=== PATIENT | female | born 1990 | race Caucasian/White ===

== ENCOUNTER 2018-09-08 14:03 | Emergency (ER) | payer MEDICAID ==
[~2018-09-08] VITALS: Ht 160 cm; Wt 50.0 kg
[~2018-09-08 14:03] MED LIST: NO HOME MEDS
[2018-09-08 14:06] VITALS: BP 126/70
[2018-09-08] MEDS ORDERED: CEPH500C5 PO (14:21)
[2018-09-08] MEDS ORDERED: SULF1TAB49 PO (14:21)
== END 2018-09-08 14:51 ==
LOC: ER 14:03
DX: T81.49XA Infection following a procedure, other surgical site, initial encounter (principal); L08.89 Other specified local infections of the skin and subcutaneous tissue; F12.90 Cannabis use, unspecified, uncomplicated; F15.90 Other stimulant use, unspecified, uncomplicated; Z88.0 Allergy status to penicillin; Z91.013 Allergy to seafood; Z56.0 Unemployment, unspecified; Z59.0 Homelessness; Z60.2 Problems related to living alone; Y83.8 Other surgical procedures as the cause of abnormal reaction of the patient, or of later complication, without mention of misadventure at the time of the procedure; Y92.89 Other specified places as the place of occurrence of the external cause
CPT/HCPCS: 99284

== ENCOUNTER 2018-12-01 15:05 | Emergency (ER) | payer MEDICAID ==
[~2018-12-01] VITALS: Ht 160 cm; Wt 56.7 kg
[~2018-12-01 15:05] MED LIST changes: +CEPH500C5 PO
[2018-12-01 15:25] VITALS: BP 124/84
--- NOTE | 2018-12-01 17:44 | NUR ---
BRACE APPLIED TO RIGHT WRIST.
== END 2018-12-01 17:44 | disposition home or self-care (01) ==
LOC: ER 15:06
DX: S63.91XA Sprain of unspecified part of right wrist and hand, initial encounter (principal); F12.90 Cannabis use, unspecified, uncomplicated; F15.90 Other stimulant use, unspecified, uncomplicated; Z88.0 Allergy status to penicillin; Z91.013 Allergy to seafood; Z79.899 Other long term (current) drug therapy; Z98.890 Other specified postprocedural states; Z60.2 Problems related to living alone; Z56.0 Unemployment, unspecified; Z59.0 Homelessness; W18.39XA Other fall on same level, initial encounter; Y93.89 Activity, other specified; Y92.89 Other specified places as the place of occurrence of the external cause; Y99.8 Other external cause status
CPT/HCPCS: 29125; 73130; 99283

== ENCOUNTER 2022-09-16 15:33 | Inpatient (IN) | payer MEDICAID ==
[~2022-09-16] VITALS: Ht 160 cm; Wt 59.1 kg
[~2022-09-16 15:33] MED LIST changes: -CEPH500C5 PO
[2022-09-16] MEDS ORDERED: normal saline 1000ML IV soln IV ONE (15:45)
[2022-09-16 16:17] LABS: BASOPHILS # (AUTO) 0.1 X10'3 (0-0.2); BASOPHILS % (AUTO) 0.7 % (0-1); EOSINOPHILS # (AUTO) 0.1 X10'3 (0-0.9); EOSINOPHILS % (AUTO) 1.4 % (0-6); HEMATOCRIT 41.6 % (35.0-45.0); HEMOGLOBIN 13.7 g/dl (12.0-16.0); LYMPHOCYTES # (AUTO) 2.2 X10'3 (1.1-4.8); LYMPHOCYTES % (AUTO) 21.5 % (21-51); MEAN CORPUSCULAR HEMOGLOBIN 25.7 PG (27.0-31.0); MEAN CORPUSCULAR HGB CONC 32.9 g/dL (33.0-36.5); MEAN CORPUSCULAR VOLUME 78.1 FL (78-98); MEAN PLATELET VOLUME 7.4 FL (7.4-10.4); MONOCYTES # (AUTO) 0.7 X10'3 (0-0.9); MONOCYTES % (AUTO) 6.7 % (2-12); NEUTROPHILS % (AUTO) 69.7 % (42-75); PLATELET COUNT 548 X10'3 (140-440); RED BLOOD COUNT 5.32 X10'6 (4.20-5.60); RED CELL DISTRIBUTION WIDTH 13.6 % (11.5-14.5); WHITE BLOOD COUNT 10.1 X10'3 (4.5-11.0)
[2022-09-16 16:32] LABS: ALANINE AMINOTRANSFERASE 14 U/L (12-78); ALBUMIN 3.4 G/DL (3.4-5.0); ALBUMIN/GLOBULIN RATIO 0.6 (1.1-1.5); ALKALINE PHOSPHATASE 132 IU/L (46-116); ANION GAP 10 (8-16); ASPARTATE AMINO TRANSFERASE 16 U/L (10-37); BILIRUBIN,TOTAL 0.3 MG/DL (0.1-1.0); BLOOD UREA NITROGEN 6 MG/DL (7-18); BUN/CREATININE RATIO 9.4 (6.6-38.0); CALCIUM 9.7 MG/DL (8.5-10.1); CHLORIDE 99 MMOL/L (99-107); CREATININE 0.64 MG/DL (0.40-0.90); GLUCOSE 97 MG/DL (70-104); POTASSIUM 3.4 MMOL/L (3.5-5.1); SODIUM 135 MMOL/L (135-145); TOTAL CARBON DIOXIDE 26.1 MMOL/L (24-32); TOTAL PROTEIN 9.1 G/DL (6.4-8.2); eGFR > 90 ML/MIN
[2022-09-16] MEDS ORDERED: vancomycin/NS 1 GM ADD-VANTAGE 250 ML IV ONE (20:20)
[2022-09-16] MEDS ORDERED: morphine 4 MG/ML inj SYRINge IV ONE (20:20)
[2022-09-16] MEDS ORDERED: metroNIDAZOLE-Flagyl 500mg/NS 100 ML IV ONE (20:25)
[2022-09-16] MEDS ORDERED: CefTRIAXone/D5W-Rocephin 1gm 50 ML IV ONE (20:25)
[2022-09-16] MEDS ORDERED: ondansetron/PF 4mg/2ml inj IV PRN (21:00)
[2022-09-16] MEDS ORDERED: temazepam 15mg capsule PO PRN (21:00)
[2022-09-16] MEDS ORDERED: bisacodyl 10mg suppository rectal RC PRN (21:00)
[2022-09-16] MEDS ORDERED: HYDROmorphone/PF 0.2 MG/ML SYRINGE IV PRN (21:00)
[2022-09-16] MEDS ORDERED: magnesium hydroxide 30ml (MOM) UD suspension PO PRN (21:00)
[2022-09-16] MEDS ORDERED: mag hydrox/Alum hydrox/simeth 30ml oral suspension PO PRN (21:00)
[2022-09-16] MEDS ORDERED: normal saline 1000ml 1,000 ML IV SCH (21:00)
[2022-09-16] MEDS ORDERED: ondansetron 4mg rapidly disintigrating tab PO PRN (21:00)
[2022-09-16] MEDS ORDERED: potassium Cl 40MEQ/1/2NS 520ml 520 ML IV PRN (21:00)
[2022-09-16] MEDS ORDERED: HYDROcodone/acetaminophen 10/325mg tab PO PRN (21:00)
[2022-09-16] MEDS ORDERED: HYDROmorphone inj. 0.5 MG/0.5 ML DISP.SYRIN IV PRN (21:00)
[2022-09-16] MEDS ORDERED: magnesium 4gm in 100ml NS 100 ML IV PRN (21:00)
[2022-09-16] MEDS ORDERED: magnesium Cl slow-release 64mg tablet PO PRN (21:00)
[2022-09-16] MEDS ORDERED: HYDROcodone/acetaminophen 5mg/325mg tablet PO PRN (21:00)
[2022-09-16] MEDS ORDERED: acetaminophen 650mg rectal suppository RC PRN (21:00)
[2022-09-16] MEDS ORDERED: TETanus/Pertussis (Acell)/Diphther VAC/PF (Tdap-Adult) 0.5ml syringe IMVAC ONE (21:00)
[2022-09-16] MEDS ORDERED: potassium Cl 20 mEq SR tablet PO PRN ×2 (21:00)
[2022-09-16] MEDS ORDERED: acetaminophen 325mg tablet PO PRN ×2 (21:00)
[2022-09-16 22:45] LABS: APTT 29 SECONDS (22-32)
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
--- NOTE | 2022-09-16 23:53 | NUR ---
IV DISCONTINUED PRIOR TO DC AND WOUND WRAPPED
[2022-09-17] VITALS: BP 138/79
[2022-09-17] MEDS ORDERED: VANCOmycin 1250MG/NS 250ml Bag 250 ML IV SCH (08:00)
[2022-09-17] MEDS ORDERED: docusate sod 100mg capsule PO SCH (08:00)
[2022-09-17] MEDS ORDERED: K and/or MAG REPLACEMENT MC SCH (08:00)
[2022-09-17] MEDS ORDERED: CefTRIAXone/D5W-Rocephin 1gm 50 ML IV SCH (20:00)
== END 2022-09-16 23:55 | disposition left against medical advice (07) | DRG 383 ==
LOC: ER 15:34 → ED HOLD 21:07 → EDBEDREQ 22:54
PROVIDERS: ADMIT Family Medicine; ATTEND Family Medicine
DX: L03.90 Cellulitis, unspecified (principal); F17.200 Nicotine dependence, unspecified, uncomplicated; Z20.822 Contact with and (suspected) exposure to COVID-19; Z60.2 Problems related to living alone; F41.9 Anxiety disorder, unspecified; Z53.29 Procedure and treatment not carried out because of patient's decision for other reasons; Z56.0 Unemployment, unspecified; Z59.00 Homelessness unspecified; Z88.0 Allergy status to penicillin; Z91.013 Allergy to seafood
CPT/HCPCS: 36415; 73610; 80053; 83605; 84145; 85025; 85610; 85730; 87040; 87811; 93005; 99285; A6258; A6446; G0378; J0696; J2270; J3490; J7030

== ENCOUNTER 2022-09-17 01:04 | Inpatient (IN) | payer MEDICAID ==
[~2022-09-17] VITALS: Ht 160 cm; Wt 59.3 kg
[2022-09-17] MEDS ORDERED: magnesium Cl slow-release 64mg tablet PO PRN (01:15)
[2022-09-17] MEDS ORDERED: mag hydrox/Alum hydrox/simeth 30ml oral suspension PO PRN (01:15)
[2022-09-17] MEDS ORDERED: magnesium hydroxide 30ml (MOM) UD suspension PO PRN (01:15)
[2022-09-17] MEDS ORDERED: HYDROcodone/acetaminophen 5mg/325mg tablet PO PRN (01:15)
[2022-09-17] MEDS ORDERED: magnesium 4gm in 100ml NS 100 ML IV PRN (01:15)
[2022-09-17] MEDS ORDERED: potassium Cl 40MEQ/1/2NS 520ml 520 ML IV PRN (01:15)
[2022-09-17] MEDS ORDERED: potassium Cl 20 mEq SR tablet PO PRN ×2 (01:15)
[2022-09-17] MEDS ORDERED: ondansetron/PF 4mg/2ml inj IV PRN (01:15)
[2022-09-17] MEDS ORDERED: bisacodyl 10mg suppository rectal RC PRN (01:15)
[2022-09-17] MEDS ORDERED: acetaminophen 325mg tablet PO PRN ×2 (01:15)
[2022-09-17] MEDS ORDERED: ondansetron 4mg rapidly disintigrating tab PO PRN (01:15)
[2022-09-17] MEDS ORDERED: acetaminophen 650mg rectal suppository RC PRN (01:15)
[2022-09-17] MEDS ORDERED: HYDROmorphone/PF 0.2 MG/ML SYRINGE IV PRN (01:15)
[2022-09-17] MEDS ORDERED: vancomycin/NS 1 GM ADD-VANTAGE 250 ML IV ONE (01:25)
--- NOTE | 2022-09-17 02:00 | NUR ---
Pt arrived to the floor at this time. Report received from ER nurse Guzman. Pt NPO and in isolation. foot is malodorous, w/dressing from ER. The pt and her clothes are very dirty and ill kept, hair is matted. Pt is sleepy, but follows commands. Addendum: 09/17/22 at 0314 by Kaci Cyr RN Amended: Links added.
[2022-09-17 03:00] VITALS: BP 110/63
[2022-09-17] MEDS: normal saline 1000ml 1,000 ML IV SCH ×2 (03:17→15:08)
[2022-09-17] MEDS: piperacillin/tazo 3.375gm/50ml 50 ML IV SCH ×4 (03:23→16:14)
[2022-09-17 06:00] VITALS: BP 110/63
[2022-09-17 06:11] LABS: HCG SERUM QL NEGATIVE
[2022-09-17 06:29] LABS: ALANINE AMINOTRANSFERASE 12 U/L (12-78); ALBUMIN 2.4 G/DL (3.4-5.0); ALBUMIN/GLOBULIN RATIO 0.5 (1.1-1.5); ALKALINE PHOSPHATASE 96 IU/L (46-116); ANION GAP 7 (8-16); ASPARTATE AMINO TRANSFERASE 9 U/L (10-37); BILIRUBIN,TOTAL 0.2 MG/DL (0.1-1.0); BLOOD UREA NITROGEN 5 MG/DL (7-18); BUN/CREATININE RATIO 9.4 (6.6-38.0); CALCIUM 8.5 MG/DL (8.5-10.1); CHLORIDE 105 MMOL/L (99-107); CREATININE 0.53 MG/DL (0.40-0.90); GLUCOSE 98 MG/DL (70-104); POTASSIUM 3.7 MMOL/L (3.5-5.1); SODIUM 137 MMOL/L (135-145); TOTAL CARBON DIOXIDE 24.8 MMOL/L (24-32); TOTAL PROTEIN 6.8 G/DL (6.4-8.2); eGFR > 90 ML/MIN
--- NOTE | 2022-09-17 06:36 | NUR ---
Problems reprioritized. Patient report given, questions answered & plan of care reviewed with Kathia NGUYỄN. Addendum: 09/17/22 at 0636 by Kaci Cyr RN Amended: Links added.
[2022-09-17] MEDS: K and/or MAG REPLACEMENT MC SCH ×2 (07:12→20:00)
[2022-09-17] MEDS ORDERED: VANCOmycin 1250MG/NS 250ml Bag 250 ML IV SCH (08:00)
[2022-09-17] MEDS: docusate sod 100mg capsule PO SCH ×2 (08:59→20:51)
--- NOTE | 2022-09-17 09:00 | NUR ---
Student Medication Administration: For this medication-pass time frame, all medication were reviewed, dispensed, administered and documented per hospital policy by Shweta Vanegas Student RN with instructor Pineda Lambert RN.
[2022-09-17 10:00] VITALS: BP 108/68
[2022-09-17] MEDS: HYDROcodone/acetaminophen 10/325mg tab PO PRN ×2 (10:00→14:49)
--- NOTE | 2022-09-17 14:51 | NUR ---
Student Medication Administration: For this medication-pass time frame, all medication were reviewed, dispensed, administered and documented per hospital policy by Shweta edgar RN with GOPI Bae.
[2022-09-17 18:00] VITALS: BP 91/50
--- NOTE | 2022-09-17 18:15 | NUR ---
Pt more awake, up to use restroom with no dizziness. BP retaken and it was 113/57, HR 84.
--- NOTE | 2022-09-17 18:17 | NUR ---
manual bp 85/50. machine low 90's systolic/low 50's diastolic. HR 57. Dr Hagan paged, awaiting orders. Map 71, patient states she is not symptomatic.
--- NOTE | 2022-09-17 18:31 | NUR ---
report given to jordyn NGUYỄN. Pt is resting in bed eating dinner. No other concerns at this time. Kathia Kamara RN looked over care and charting.
--- NOTE | 2022-09-17 19:11 | NUR ---
Student documentation: I have reviewed and agree with all interventions, assessments performed and documented by Severo Vanegas student nurse, by Galina Lambert RN instructor.
--- NOTE | 2022-09-17 20:10 | NUR ---
COVID SWAB DONE 09/16/22 WAS NEGATIVE. Addendum: 09/17/22 at 2011 by Kaci Cyr RN Amended: Links added.
[2022-09-17] MEDS: vancomycin/NS 1 GM ADD-VANTAGE 250 ML IV SCH (20:51)
[2022-09-17] MEDS ORDERED: temazepam 15mg capsule PO PRN (21:00)
[2022-09-17 22:00] VITALS: BP 91/45
[2022-09-18] VITALS (20 sets, daily range): BP systolic 101–157; BP diastolic 55–103
[2022-09-18] MEDS: piperacillin/tazo 3.375gm/50ml 50 ML IV SCH ×2 (00:09→08:47)
--- NOTE | 2022-09-18 04:00 | NUR ---
PT HAS REFUSED TO GET INTO SHOWER FOR PREOP, SHE INSTEAD HAS OPTED TO USE WASH RAGS AND WIPES. PT WAS ASSISTED TO PUT A GOWN ON REFUSE TO TAKE OF BRA/SWIM SUIT TOP. EDUCATED PT ON THE REASONING FOR PREOP SHOWERS/WASHING AND PT STATED THAT SHE UNDERSTOOD, BUT VERY UNMOTIVATED. PT NEEDS ENCOURAGEMENT AND ASSISTANCE, IN PERFORMING MOST TASKS. Addendum: 09/18/22 at 0406 by Kaci Cyr RN Amended: Links added.
[2022-09-18] MEDS: normal saline 1000ml 1,000 ML IV SCH ×2 (05:51→12:56)
--- NOTE | 2022-09-18 06:31 | NUR ---
Problems reprioritized. Patient report given, questions answered & plan of care reviewed with Rebecca NGUYỄN. Addendum: 09/18/22 at 0631 by Kaci Cyr RN Amended: Links added.
[2022-09-18 06:34] LABS: BASOPHILS # (AUTO) 0.1 X10'3 (0-0.2); BASOPHILS % (AUTO) 0.6 % (0-1); EOSINOPHILS # (AUTO) 0.2 X10'3 (0-0.9); HEMATOCRIT 32.1 % (35.0-45.0); HEMOGLOBIN 10.6 g/dl (12.0-16.0); LYMPHOCYTES # (AUTO) 2.4 X10'3 (1.1-4.8); LYMPHOCYTES % (AUTO) 26.6 % (21-51); MEAN CORPUSCULAR HEMOGLOBIN 25.8 PG (27.0-31.0); MEAN CORPUSCULAR HGB CONC 33.1 g/dL (33.0-36.5); MEAN PLATELET VOLUME 7.9 FL (7.4-10.4); MONOCYTES # (AUTO) 0.6 X10'3 (0-0.9); MONOCYTES % (AUTO) 7.1 % (2-12); NEUTROPHILS # (AUTO) 5.7 X10'3 (1.8-7.7); NEUTROPHILS % (AUTO) 63.7 % (42-75); PLATELET COUNT 459 X10'3 (140-440); RED BLOOD COUNT 4.11 X10'6 (4.20-5.60); RED CELL DISTRIBUTION WIDTH 13.8 % (11.5-14.5); WHITE BLOOD COUNT 8.9 X10'3 (4.5-11.0)
--- NOTE | 2022-09-18 06:49 | NUR ---
Patient in room [facility]. I have received report from jordyn NGUYỄN and had the opportunity to ask questions and assume patient care.
[2022-09-18] MEDS: docusate sod 100mg capsule PO SCH ×2 (07:01→20:08)
[2022-09-18] MEDS: vancomycin/NS 1 GM ADD-VANTAGE 250 ML IV SCH ×2 (07:01→20:09)
[2022-09-18 07:03] LABS: ALANINE AMINOTRANSFERASE 10 U/L (12-78); ALBUMIN 2.2 G/DL (3.4-5.0); ALBUMIN/GLOBULIN RATIO 0.5 (1.1-1.5); ALKALINE PHOSPHATASE 88 IU/L (46-116); ANION GAP 6 (8-16); ASPARTATE AMINO TRANSFERASE 13 U/L (10-37); BILIRUBIN,TOTAL 0.2 MG/DL (0.1-1.0); BLOOD UREA NITROGEN 9 MG/DL (7-18); BUN/CREATININE RATIO 13.6 (6.6-38.0); CALCIUM 8.3 MG/DL (8.5-10.1); CHLORIDE 105 MMOL/L (99-107); CREATININE 0.66 MG/DL (0.40-0.90); GLUCOSE 87 MG/DL (70-104); POTASSIUM 4.1 MMOL/L (3.5-5.1); SODIUM 138 MMOL/L (135-145); TOTAL CARBON DIOXIDE 27.4 MMOL/L (24-32); TOTAL PROTEIN 6.3 G/DL (6.4-8.2); eGFR > 90 ML/MIN
[2022-09-18] MEDS: K and/or MAG REPLACEMENT MC SCH ×2 (08:00→20:00)
--- NOTE | 2022-09-18 08:32 | NUR ---
patient is being prepped for surgery, refused to wash more, compliant on removing hospital pants but refusing to remove bra. rings r lip ring.
[2022-09-18] MEDS ORDERED: fentaNYL /PF 50mcg/ml 5ml ampule ONE (09:37)
[2022-09-18] MEDS ORDERED: midazolam 1 mg/ML 2ml injection ONE (09:37)
[2022-09-18] MEDS ORDERED: propofol inj 20 ML IV ONE (09:40)
[2022-09-18] MEDS ORDERED: rocuronium 10mg/ml inj IV ONE (09:40)
[2022-09-18] MEDS ORDERED: ondansetron/PF 4mg/2ml inj ONE (09:40)
[2022-09-18] MEDS ORDERED: LIDOcaine 2% (20mg/ml) 5ml vial ONE (09:40)
[2022-09-18] MEDS ORDERED: dexamethasone sod phosphate 4mg/ml inj. ONE (09:40)
[2022-09-18] MEDS ORDERED: morphine 2 MG/ML inj. syringe IV PRN (10:15)
[2022-09-18] MEDS ORDERED: ondansetron/PF 4mg/2ml inj IV PRN (10:15)
[2022-09-18] MEDS ORDERED: morphine 4 MG/ML inj SYRINge IV PRN (10:15)
[2022-09-18] MEDS ORDERED: meperidine/PF 25mg/ml syringe IV PRN ×3 (10:15)
[2022-09-18] MEDS ORDERED: ringers solution, lacted 1,000 ML IV SCH (10:15)
[2022-09-18] MEDS ORDERED: proCHLORperazine 10 MG/2 ml inj IV PRN (10:15)
[2022-09-18] MEDS ORDERED: ketamine 50mg/5ml syringe ONE (10:33)
--- NOTE | 2022-09-18 11:20 | NUR ---
Received from OR via BED, accompanied by Anesthesiologist JENNI and report given by Anesthesiolgist. PT SLEEPY, OXYGENATING WELL ON 10 LPM 02 VIA MASK, NO RESP DISTRESS NOTED. NO SX OF NAUSEA NOTED, PT IS STILL SLEEPY, ROLLING IN BED AND CRYING. WILL MEDICATE NEEDED, SEE EMAR. WOUND VAC TO L ANKLE, 125 LOW CONTINUOUS SX. SANGINOUS OUTPUT. SCD TO LLE. VSS.
[2022-09-18] MEDS ORDERED: neostigmine methylsulfate 1 MG/ML 10ml vial ONE (11:30)
[2022-09-18] MEDS ORDERED: glycopyrrolate 0.2mg/ml inj ONE (11:30)
--- NOTE | 2022-09-18 12:45 | NUR ---
Report called to receiving nurse. Transferred via BED Belongings IN PT ROOM. ORDERS IN FOR WOUND VAC. PT RESTING QUIETLY, VSS. TOLERATING PO FLUIDS. ATE A YOGURT. SX TO VACM INTACT, TOES ON LEFT FOOT ARE WARM. Special Issues communicated to receiving nurse.
[2022-09-18] MEDS: HYDROmorphone inj. 0.5 MG/0.5 ML DISP.SYRIN IV PRN ×2 (12:56→17:49)
[2022-09-18] MEDS: CefTRIAXone/D5W-Rocephin 1gm 50 ML IV SCH (15:16)
[2022-09-18] MEDS: HYDROcodone/acetaminophen 10/325mg tab PO PRN ×2 (15:51→20:08)
[2022-09-18] MEDS: metroNIDAZOLE-Flagyl 500mg/NS 100 ML IV SCH ×2 (15:51→23:49)
[2022-09-18] MEDS ORDERED: VANCOMYCIN LEVEL IV ONE (19:30)
[2022-09-18] MEDS: enoxaparin 40mg/0.4ml syringe SUBCUT SCH (20:08)
--- NOTE | 2022-09-19 04:53 | NUR ---
patient sleeping on and off post surgery. Tearful at times, wanting with her, medicated as per EMAR with good effect. wound vac in place, serosang drainage noted. No c/o at time of report.
[2022-09-19] MEDS: HYDROcodone/acetaminophen 10/325mg tab PO PRN (05:12)
--- NOTE | 2022-09-19 05:35 | NUR ---
Problems reprioritized. Patient report given, questions answered & plan of care reviewed with Clarita NGUYỄN.
--- NOTE | 2022-09-19 06:23 | NUR ---
Patient in room [facility]. I have received report from Rebecca NGUYỄN and had the opportunity to ask questions and assume patient care.
[2022-09-19 07:03] VITALS: BP 102/59
[2022-09-19 07:13] LABS: BASOPHILS % (AUTO) 0.3 % (0-1); EOSINOPHILS % (AUTO) 0.2 % (0-6); LYMPHOCYTES # (AUTO) 2.8 X10'3 (1.1-4.8); LYMPHOCYTES % (AUTO) 21.2 % (21-51); MEAN CORPUSCULAR HEMOGLOBIN 25.8 PG (27.0-31.0); MEAN CORPUSCULAR HGB CONC 33.2 g/dL (33.0-36.5); MEAN CORPUSCULAR VOLUME 77.6 FL (78-98); MEAN PLATELET VOLUME 7.8 FL (7.4-10.4); MONOCYTES # (AUTO) 1.1 X10'3 (0-0.9); NEUTROPHILS # (AUTO) 9.2 X10'3 (1.8-7.7); NEUTROPHILS % (AUTO) 70.3 % (42-75); PLATELET COUNT 438 X10'3 (140-440); RED BLOOD COUNT 3.87 X10'6 (4.20-5.60); RED CELL DISTRIBUTION WIDTH 13.6 % (11.5-14.5); WHITE BLOOD COUNT 13.1 X10'3 (4.5-11.0)
[2022-09-19] MEDS: CefTRIAXone/D5W-Rocephin 1gm 50 ML IV SCH (07:30)
[2022-09-19] MEDS: docusate sod 100mg capsule PO SCH ×2 (07:30→19:37)
[2022-09-19] MEDS: metroNIDAZOLE-Flagyl 500mg/NS 100 ML IV SCH ×2 (07:32→16:28)
[2022-09-19] MEDS: vancomycin/NS 1 GM ADD-VANTAGE 250 ML IV SCH (07:33)
[2022-09-19 07:42] LABS: ALANINE AMINOTRANSFERASE 12 U/L (12-78); ALBUMIN 2.1 G/DL (3.4-5.0); ALBUMIN/GLOBULIN RATIO 0.5 (1.1-1.5); ALKALINE PHOSPHATASE 79 IU/L (46-116); ANION GAP 6 (8-16); ASPARTATE AMINO TRANSFERASE 13 U/L (10-37); BILIRUBIN,TOTAL 0.1 MG/DL (0.1-1.0); BLOOD UREA NITROGEN 7 MG/DL (7-18); BUN/CREATININE RATIO 11.7 (6.6-38.0); CALCIUM 8.4 MG/DL (8.5-10.1); CHLORIDE 105 MMOL/L (99-107); GLUCOSE 102 MG/DL (70-104); MAGNESIUM 1.8 MG/DL (1.5-2.4); POTASSIUM 3.7 MMOL/L (3.5-5.1); SODIUM 138 MMOL/L (135-145); TOTAL CARBON DIOXIDE 26.7 MMOL/L (24-32); TOTAL PROTEIN 6.2 G/DL (6.4-8.2); eGFR > 90 ML/MIN
[2022-09-19] MEDS: K and/or MAG REPLACEMENT MC SCH ×2 (08:00→19:32)
--- NOTE | 2022-09-19 09:45 | NUR ---
Received order for consult. Met with patient in regards to substance use and to see if patient was interested in treatment options. Patient declined resources
[2022-09-19 11:35] VITALS: BP 104/57
--- NOTE | 2022-09-19 17:01 | NUR ---
PRESSURE ULCER EDUCATION: DEFINITION: A pressure ulcer is an area of skin that breaks down when you stay in one position too long. The constant pressure against the skin reduces the blood flow to that area and the affected tissue dies. CAUSES: "Being bedridden or in a wheelchair "Fragile skin "Having a chronic condition, such as diabetes or vascular disease "Inability to move certain parts of your body without assistance "Older age "Incontinence of urine or stool SYMPTOMS: "A reddened area that DOES NOT turn white when pressed on - this can be the beginning of a pressure ulcer "A blister, deep sore or a crater - these can be advanced pressure ulcers FIRST AID: "Relieve the pressure on this area "Keep the area clean and dry "Call your primary doctor if you see any of the above symptoms "DO NOT massage the area "DO NOT use a donut shaped or ring shaped pillow- these actually interfere with the blood flow and cause complications PREVENTION: "Check for pressure ulcers everyday "Change position at least every two hours to relieve pressure "Use items that help relieve pressure- pillows, sheepskin, foam padding, and powders. "Keep skin clean and dry "Eat healthy well balanced meals "Exercise daily IF YOU SEE ANY OF THESE SYMPTOMS WHILE IN THE HOSPITAL - TELL YOUR NURSE IMMEDIATELY. IF YOU SEE ANY OF THESE SYMPTOMS WHILE AT HOME OR HAVE ANY QUESTIONS OR CONCERNS ABOUT PRESSURE ULCERS - CALL YOUR PRIMARY DOCTOR IMMEDIATELY. Addendum: 09/19/22 at 1703 by Jennifer Sams RN Amended: Links added.
[2022-09-19 18:00] VITALS: BP 104/57
--- NOTE | 2022-09-19 18:25 | NUR ---
Problems reprioritized. Patient report given, questions answered & plan of care reviewed with Brandy Nava RN.
--- NOTE | 2022-09-19 18:30 | NUR ---
Patient in room [facility]. I have received report from SANDRA NGUYỄN and had the opportunity to ask questions and assume patient care.
[2022-09-19] MEDS: enoxaparin 40mg/0.4ml syringe SUBCUT SCH (19:37)
[2022-09-19] MEDS: VANCOMYCIN 1,500MG in normal saline IV soln 300 ML IV SCH (19:37)
[2022-09-19 22:00] VITALS: BP 110/68
[2022-09-20] MEDS: metroNIDAZOLE-Flagyl 500mg/NS 100 ML IV SCH ×3 (00:28→20:31)
--- NOTE | 2022-09-20 06:20 | NUR ---
Problems reprioritized. Patient report given, questions answered & plan of care reviewed with SANDRA NGUYỄN.
[2022-09-20 06:50] LABS: BASOPHILS # (AUTO) 0.1 X10'3 (0-0.2); BASOPHILS % (AUTO) 0.6 % (0-1); EOSINOPHILS # (AUTO) 0.1 X10'3 (0-0.9); EOSINOPHILS % (AUTO) 0.5 % (0-6); HEMATOCRIT 34.9 % (35.0-45.0); HEMOGLOBIN 11.8 g/dl (12.0-16.0); LYMPHOCYTES # (AUTO) 2.6 X10'3 (1.1-4.8); LYMPHOCYTES % (AUTO) 22.4 % (21-51); MEAN CORPUSCULAR HEMOGLOBIN 26.1 PG (27.0-31.0); MEAN CORPUSCULAR HGB CONC 33.8 g/dL (33.0-36.5); MEAN CORPUSCULAR VOLUME 77.3 FL (78-98); MEAN PLATELET VOLUME 7.5 FL (7.4-10.4); MONOCYTES # (AUTO) 0.8 X10'3 (0-0.9); MONOCYTES % (AUTO) 6.6 % (2-12); NEUTROPHILS % (AUTO) 69.9 % (42-75); PLATELET COUNT 479 X10'3 (140-440); RED BLOOD COUNT 4.52 X10'6 (4.20-5.60); RED CELL DISTRIBUTION WIDTH 13.7 % (11.5-14.5); WHITE BLOOD COUNT 11.4 X10'3 (4.5-11.0)
[2022-09-20 07:00] VITALS: BP 103/56
[2022-09-20 07:26] LABS: ALANINE AMINOTRANSFERASE 11 U/L (12-78); ALBUMIN 2.6 G/DL (3.4-5.0); ALBUMIN/GLOBULIN RATIO 0.5 (1.1-1.5); ALKALINE PHOSPHATASE 89 IU/L (46-116); ANION GAP 7 (8-16); ASPARTATE AMINO TRANSFERASE 15 U/L (10-37); BILIRUBIN,TOTAL 0.2 MG/DL (0.1-1.0); BLOOD UREA NITROGEN 6 MG/DL (7-18); BUN/CREATININE RATIO 11.8 (6.6-38.0); CHLORIDE 102 MMOL/L (99-107); CREATININE 0.51 MG/DL (0.40-0.90); GLUCOSE 96 MG/DL (70-104); MAGNESIUM 1.9 MG/DL (1.5-2.4); POTASSIUM 3.9 MMOL/L (3.5-5.1); SODIUM 136 MMOL/L (135-145); TOTAL CARBON DIOXIDE 27.1 MMOL/L (24-32); TOTAL PROTEIN 7.4 G/DL (6.4-8.2); eGFR > 90 ML/MIN
[2022-09-20] MEDS: CefTRIAXone/D5W-Rocephin 1gm 50 ML IV SCH (07:32)
[2022-09-20] MEDS: docusate sod 100mg capsule PO SCH ×2 (07:34→22:05)
[2022-09-20] MEDS: K and/or MAG REPLACEMENT MC SCH ×2 (08:00→20:00)
[2022-09-20] MEDS: VANCOMYCIN 1,500MG in normal saline IV soln 300 ML IV SCH ×2 (09:21→22:06)
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
[2022-09-20 11:00] VITALS: BP 116/86
[2022-09-20] MEDS: HYDROcodone/acetaminophen 10/325mg tab PO PRN (11:11)
[2022-09-20 18:00] VITALS: BP 93/52
--- NOTE | 2022-09-20 18:52 | NUR ---
Problems reprioritized. Patient report given, questions answered & plan of care reviewed with Brandy Nava RN.
--- NOTE | 2022-09-20 18:55 | NUR ---
Patient in room [facility]. I have received report from SANDRA NGUYỄN and had the opportunity to ask questions and assume patient care.
[2022-09-20 22:00] VITALS: BP 99/65
[2022-09-20] MEDS: enoxaparin 40mg/0.4ml syringe SUBCUT SCH (22:06)
[2022-09-21] MEDS: metroNIDAZOLE-Flagyl 500mg/NS 100 ML IV SCH ×2 (02:23→12:53)
[2022-09-21] MEDS: HYDROcodone/acetaminophen 10/325mg tab PO PRN ×2 (05:54→14:06)
[2022-09-21 06:00] VITALS: BP 114/70
--- NOTE | 2022-09-21 06:30 | NUR ---
Problems reprioritized. Patient report given, questions answered & plan of care reviewed with SANDRA NGUYỄN.
--- NOTE | 2022-09-21 07:00 | NUR ---
Patient in room [facility]. I have received report from Brandy Nava RN and had the opportunity to ask questions and assume patient care.
[2022-09-21] MEDS ORDERED: VANCOMYCIN LEVEL IV ONE (07:30)
--- NOTE | 2022-09-21 09:00 | NUR ---
Initial: Pt admitted w/ infected open L ankle wound, s/p I&D and removal of hardware this admit per EMR. Currently on Regular diet w/ avg intake 67% of meals likely meeting est needs at this time. LBM 09/20 receiving routine colace. Recommend Olman smoothies BID to assist w/ wound healing. Will continue to monitor. Recs; 1. Continue Regular diet as tolerated 2. Olman Smoothies BIDBD; pending MD verification 3. Bowel care per rx 4. Scaled wts Addendum: 09/21/22 at [address] Amended: Links added.
[2022-09-21 09:13] LABS: BASOPHILS % (AUTO) 0.6 % (0-1); EOSINOPHILS # (AUTO) 0.1 X10'3 (0-0.9); EOSINOPHILS % (AUTO) 1.1 % (0-6); HEMATOCRIT 35.5 % (35.0-45.0); HEMOGLOBIN 11.7 g/dl (12.0-16.0); LYMPHOCYTES # (AUTO) 1.8 X10'3 (1.1-4.8); LYMPHOCYTES % (AUTO) 22.6 % (21-51); MEAN CORPUSCULAR HEMOGLOBIN 25.4 PG (27.0-31.0); MEAN CORPUSCULAR HGB CONC 32.8 g/dL (33.0-36.5); MEAN CORPUSCULAR VOLUME 77.5 FL (78-98); MEAN PLATELET VOLUME 7.6 FL (7.4-10.4); MONOCYTES # (AUTO) 0.7 X10'3 (0-0.9); MONOCYTES % (AUTO) 8.7 % (2-12); NEUTROPHILS # (AUTO) 5.2 X10'3 (1.8-7.7); PLATELET COUNT 443 X10'3 (140-440); RED BLOOD COUNT 4.58 X10'6 (4.20-5.60); RED CELL DISTRIBUTION WIDTH 13.7 % (11.5-14.5); WHITE BLOOD COUNT 7.8 X10'3 (4.5-11.0)
[2022-09-21] MEDS: docusate sod 100mg capsule PO SCH (09:18)
[2022-09-21] MEDS: CefTRIAXone/D5W-Rocephin 1gm 50 ML IV SCH (09:18)
[2022-09-21 09:19] LABS: ALANINE AMINOTRANSFERASE 15 U/L (12-78); ALBUMIN 2.4 G/DL (3.4-5.0); ALBUMIN/GLOBULIN RATIO 0.5 (1.1-1.5); ALKALINE PHOSPHATASE 80 IU/L (46-116); ANION GAP 8 (8-16); ASPARTATE AMINO TRANSFERASE 28 U/L (10-37); BILIRUBIN,TOTAL 0.2 MG/DL (0.1-1.0); BLOOD UREA NITROGEN 8 MG/DL (7-18); CALCIUM 9.2 MG/DL (8.5-10.1); CHLORIDE 105 MMOL/L (99-107); CREATININE 0.47 MG/DL (0.40-0.90); GLUCOSE 94 MG/DL (70-104); POTASSIUM 4.1 MMOL/L (3.5-5.1); SODIUM 137 MMOL/L (135-145); TOTAL CARBON DIOXIDE 23.7 MMOL/L (24-32); TOTAL PROTEIN 7.2 G/DL (6.4-8.2); eGFR > 90 ML/MIN
[2022-09-21 09:20] LABS: C-REACTIVE PROTEIN 4.29 MG/DL (0.0-0.5); MAGNESIUM 2.1 MG/DL (1.5-2.4); VANCOMYCIN,TROUGH 10.5 UG/ML (6.0-14.0)
[2022-09-21 10:00] VITALS: BP 108/73
[2022-09-21] MEDS ORDERED: VANCOmycin 1250MG/NS 250ml Bag 250 ML IV SCH (11:00)
[2022-09-21] MEDS ORDERED: LIDOcaine 40mg/ml topical solution MM ONE (11:45)
[2022-09-21] MEDS: K and/or MAG REPLACEMENT MC SCH (12:16)
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
--- NOTE | 2022-09-21 14:13 | NUR ---
informed by suzan that patient had pulled her IV and wanted to leave AMA. Spoke with patient and advised patient of risks of leaving including the possibility of losing her foot. Patients Father insisted that he could take better care of her then rehab and she didn't need antibiotics. Advised that she could not leave with the wound vac, stated then take it off me. wound care here to do wound care on patient and agreed to remove wound vac, they also advised patient of risks of leaving. Hospitalist was called and paged, returned call and was informed of patients decision.
--- NOTE | 2022-09-21 15:09 | NUR ---
Patient left AMA at 1443.
--- NOTE | 2022-09-21 15:22 | NUR ---
WOUND INFECTION EDUCATION PROVIDED BY WOUND CARE 1. Patient instructed to call their primary doctor, or go the ED immediately if any of the following symptoms occur: * Increased pain in wound * Increase in drainage from the wound * Redness in the skin surrounding the wound * Warmth in the skin surrounding the wound * Bleeding from the wound * Temperature of 101 or greater 2. If any of these occur while in the hospital tell a nurse immediately. Addendum: 09/21/22 at 1523 by Sena Juarez LVN Amended: Links added.
[2022-09-21] MEDS ORDERED: JUVEN Smoothie Arginine/Glut./Ca2+Bmb (Juven 19.3pkt) 240ml cup PO SCH (17:30)
[2022-09-22] MEDS ORDERED: VANCOMYCIN LEVEL IV ONE (10:30)
== END 2022-09-21 14:50 | disposition left against medical advice (07) | DRG 313 ==
LOC: ER 01:04 → EEVIPCON 01:14 → SUR 3N 01:14
PROVIDERS: ADMIT Family Medicine; ATTEND Internal Medicine
PROC: 0QBK0ZZ Excision of Left Fibula, Open Approach (ICD-10-PCS; 2022-09-18)
PROC: 0QPK04Z Removal of Internal Fixation Device from Left Fibula, Open Approach (ICD-10-PCS; 2022-09-18)
PROC: 0QPH04Z Removal of Internal Fixation Device from Left Tibia, Open Approach (ICD-10-PCS; 2022-09-18)
PROC: 0QBH0ZZ Excision of Left Tibia, Open Approach (ICD-10-PCS; principal; 2022-09-18 09:42)
DX: T84.69XA Infection and inflammatory reaction due to internal fixation device of other site, initial encounter (principal); M86.8X7 Other osteomyelitis, ankle and foot; S91.002A Unspecified open wound, left ankle, initial encounter; D75.839 Thrombocytosis, unspecified; F41.9 Anxiety disorder, unspecified; J45.909 Unspecified asthma, uncomplicated; F19.10 Other psychoactive substance abuse, uncomplicated; X58.XXXA Exposure to other specified factors, initial encounter; Z53.29 Procedure and treatment not carried out because of patient's decision for other reasons; E87.6 Hypokalemia; Z59.00 Homelessness unspecified; Z88.0 Allergy status to penicillin; Z91.013 Allergy to seafood; Y93.89 Activity, other specified; Y92.89 Other specified places as the place of occurrence of the external cause; Y99.8 Other external cause status; Z86.14 Personal history of Methicillin resistant Staphylococcus aureus infection; Z72.0 Tobacco use; Z71.6 Tobacco abuse counseling
CPT/HCPCS: 36415; 73600; 76000; 80053; 80202; 82948; 83735; 84703; 85025; 85651; 86140; 87070; 87075; 87081; 87102; 97116; 97161; 99285; A4618; A6258; A6446; A6550; A7000; G0378; J0696; J1100; J1170; J1650; J2175; J2250; J2405; J2543; J2704; J2710; J3010; J3370; J3490; J7030; J7040; J7120